=== PATIENT | female | born 1950 | race Caucasian/White ===

== ENCOUNTER 2017-01-24 11:14 | Inpatient (IN) ==
[2017-01-24] MEDS ORDERED: Aspirin 81 MG TAB.CHEW PO ONE (11:51)
[2017-01-24 12:02] LABS: Basophils # 0.1 K/mcL (0.0-0.2); Basophils % 0.5 %; Eosinophils # 0.2 K/mcL (0.0-0.6); Eosinophils % 1.6 %; Hematocrit 47.5 % (35.3-44.9); Hemoglobin 15.8 g/dL (11.5-15.4); Immature Granulocytes % 0.3 % (0-4); Lymphocytes # 2.6 K/mcL (0.6-4.6); Lymphocytes % 25.8 %; Mean Corpuscular HGB Conc 33.3 g/dL (31.6-35.5); Mean Corpuscular Hemoglobin 31.7 pg (28.0-33.3); Mean Corpuscular Volume 95.2 fL (83.0-100.0); Mean Platelet Volume 10.9 fL (9.4-12.4); Monocytes # 0.5 K/mcL (0.0-1.3); Monocytes % 5.4 %; Neutrophils # 6.7 K/mcL (1.6-8.9); Platelet Count 193 K/mcL (140-400); Red Blood Count 4.99 M/mcL (3.82-4.97); Segmented Neutrophils % 66.4 %
[2017-01-24 12:12] LABS: INR 1.1; Prothrombin Time 11.4 Seconds (9.4-12.1)
[2017-01-24] MEDS: niCARdipine 40 MG/200 ML MLS IVC SCH (12:13)
[2017-01-24 12:15] LABS: Activated Partial Thrombo Time 35.5 Seconds (26.0-36.0)
[2017-01-24 12:16] LABS: Calcium 10.7 mg/dL (8.6-10.8); Potassium 4.7 mEq/L (3.5-4.5)
[2017-01-24] MEDS ORDERED: Naloxone 0.4 MG/ML INJ IVP PRN (14:10)
[2017-01-24] MEDS ORDERED: Ondansetron 4 MG/2 ML VIAL IVP PRN (14:10)
[2017-01-24] MEDS ORDERED: Nitroglycerin 1 INCH/GM PACKET TP SCH (14:30)
--- NOTE | 2017-01-24 14:33 | Emergency Department Note ---
Disposition Clinical Impression: Hypertensive emergency Disposition: Admitted As Inpatient Condition: Good General Adult HPI - General Chief complaint: ED General Medical Stated complaint: Hypertension Time Seen by Provider: 01/24/17 11:33 Source: patient, family Limitations: no limitations Nursing Notes Reviewed: Yes Vital Signs Reviewed: Yes - History of Present Illness HPI Narrative: 58-year-old female who presents with concern for hypertensive emergency. She was seen at the outpatient pulmonary clinic and found to be hypertensive. She has a history of chronic kidney disease. There is concerned today that her blood pressure would contribute to worsening of her kidney disease. She denies chest pain or dyspnea. She has no swelling. Pain Scale: 0 - Related Data Home Medications Medication Instructions Recorded Confirmed Albuterol Sulfate [Proair Hfa] 2 puff IH Q4H PRN 01/24/17 01/24/17 Fluticasone/Salmeterol [Advair 1 puff IH BID 01/24/17 01/24/17 100-50 Diskus] Lisinopril [Zestril] 40 mg PO DAILY 01/24/17 01/24/17 Metoprolol [Lopressor] 50 mg PO BID 01/24/17 01/24/17 Mv-Mn/FA/Vit K/Lycop/Lut/Coq10 1 tab PO DAILY 01/24/17 01/24/17 [Daily Multivitamin Capsule] Vitamin E 1,000 unit PO DAILY 01/24/17 01/24/17 Allergies Allergy/AdvReac Type Severity Reaction Status Date / Time codeine Allergy Hives Verified 01/24/17 13:59 Sulfa (Sulfonamide Allergy Hives Verified 01/24/17 13:59 Antibiotics) All systems ED: reviewed and negative except as stated. Past Medical History - Past Medical History Medical history: Reports: hyperlipidemia, renal disease Psychiatric history: Reports: no psych history - Social History Smoking Status: Current every day smoker Smokeless Tobacco Status: No Alcohol use: Reports: none Drug use: Reports: none Physical Exam - General Limitations: no limitations General appearance: alert, in no apparent distress - Head Head exam: atraumatic - Eye Eye exam: Present: normal appearance - ENT ENT exam: normal exam, normal oropharynx - Neck Neck exam: Present: normal inspection, full ROM - Chest Chest inspection: Present: normal inspection - Respiratory Respiratory exam: Present: normal lung sounds bilaterally - Cardiovascular Cardiovascular exam: Present: regular rate, normal rhythm - Abdominal Exam Abdominal exam: Present: soft, Non-Tender - Extremities Exam Extremities exam: Present: normal inspection, full ROM - Expanded Lower Extremity Exam Hip/Pelvis exam: Present: normal inspection, full ROM Knee exam: Present: normal inspection, full ROM Neurovascular/Tendon exam: Present: normal capillary refill. Absent: pulse deficit Gait: observed and normal - Back Exam Back exam: Present: normal inspection, full ROM - Neurological Exam Neurological exam: Present: alert, oriented X3, CN II-XII intact - Psychiatric Psychiatric exam: Present: normal affect, normal mood - Skin Skin exam: Present: warm, dry Course Vital Signs Temperature 98.1 F 01/24/17 11:25 Pulse Rate 42 01/24/17 11:25 Respiratory Rate 16 01/24/17 11:25 Blood Pressure 217/93 01/24/17 11:25 O2 Sat by Pulse Oximetry 100 01/24/17 11:25 Temperature 98.1 F 01/24/17 11:25 Pulse Rate 63 01/24/17 12:54 Respiratory Rate 18 01/24/17 14:13 Blood Pressure 163/98 01/24/17 14:13 O2 Sat by Pulse Oximetry 99 01/24/17 12:54 Oxygen Delivery Oxygen Delivery Room Air Medical Decision Making - MDM Narrative Medical decision making narrative: Female patient with hypertensive emergency. Blood pressures are to 30s over 130s. Cardene was initiated as she does have evidence of end organ dysfunction with acute kidney injury. Her blood pressure did come down with Cardene. I would limit reducing her blood pressure by more than 20% of the mean arterial pressure in the first few hours after surgery and fusion. She will be admitted for further monitoring and blood pressure management. - Medical Records Medical records reviewed: Yes I reviewed the patient's medical records. - Lab Data Lab results reviewed: Yes I reviewed the patient's lab results. Result diagrams: 01/24/17 11:45 01/24/17 11:45 Lab Results 01/24/17 01/24/17 01/24/17 Range/Units 11:45 11:45 11:45 WBC 10.0 (4.3-11.1) K/mcL RBC 4.99 H (3.82-4.97) M/mcL Hgb 15.8 H (11.5-15.4) g/dL Hct 47.5 H (35.3-44.9) % MCV 95.2 (83.0-100.0) fL MCH 31.7 (28.0-33.3) pg MCHC 33.3 (31.6-35.5) g/dL RDW 13.0 (11.5-14.5) % Plt Count 193 (140-400) K/mcL MPV 10.9 (9.4-12.4) fL Immature Gran % 0.3 (0-4) % Seg Neutrophils % 66.4 % Lymphocytes % 25.8 % Monocytes % 5.4 % Eosinophils % 1.6 % Basophils % 0.5 % Neutrophils # 6.7 (1.6-8.9) K/mcL Lymphocytes # 2.6 (0.6-4.6) K/mcL Monocytes # 0.5 (0.0-1.3) K/mcL Eosinophils # 0.2 (0.0-0.6) K/mcL Basophils # 0.1 (0.0-0.2) K/mcL PT 11.4 (9.4-12.1) Seconds INR 1.1 APTT 35.5 (26.0-36.0) Seconds Sodium 140 (136-145) mEq/L Potassium 4.7 H (3.5-4.5) mEq/L Chloride 107 (98-109) mEq/L Carbon Dioxide 26 (19-29) mEq/L BUN 18 (7-20) mg/dL Creatinine 1.45 H (0.57-1.11) mg/dL Est GFR ( Amer) 44 L (> 60) Est GFR (Non-Af Amer) 36 L (> 60) BUN/Creatinine Ratio 12 (6-26) Glucose 94 (70-99) mg/dL Calculated Osmolality 292 (280-300) Calcium 10.7 (8.6-10.8) mg/dL Troponin I (0-0.03) ng/mL 01/24/17 Range/Units 11:45 WBC (4.3-11.1) K/mcL RBC (3.82-4.97) M/mcL Hgb (11.5-15.4) g/dL Hct (35.3-44.9) % MCV (83.0-100.0) fL MCH (28.0-33.3) pg MCHC (31.6-35.5) g/dL RDW (11.5-14.5) % Plt Count (140-400) K/mcL MPV (9.4-12.4) fL Immature Gran % (0-4) % Seg Neutrophils % % Lymphocytes % % Monocytes % % Eosinophils % % Basophils % % Neutrophils # (1.6-8.9) K/mcL Lymphocytes # (0.6-4.6) K/mcL Monocytes # (0.0-1.3) K/mcL Eosinophils # (0.0-0.6) K/mcL Basophils # (0.0-0.2) K/mcL PT (9.4-12.1) Seconds INR APTT (26.0-36.0) Seconds Sodium (136-145) mEq/L Potassium (3.5-4.5) mEq/L Chloride (98-109) mEq/L Carbon Dioxide (19-29) mEq/L BUN (7-20) mg/dL Creatinine (0.57-1.11) mg/dL Est GFR ( Amer) (> 60) Est GFR (Non-Af Amer) (> 60) BUN/Creatinine Ratio (6-26) Glucose (70-99) mg/dL Calculated Osmolality (280-300) Calcium (8.6-10.8) mg/dL Troponin I 0.01 (0-0.03) ng/mL - Radiology Data Radiology results reviewed: Yes I reviewed the patient's radiology results. Critical Care Time Total Critical Care Time: 31 Attestation: Greater than 31 minutes of critical care time was spent resuscitating this acutely ill patient suffering from hypertensive emergency requiring intervention with Cardene infusion. This was excluding billable procedures.
--- NOTE | 2017-01-24 14:51 | Internal Med History&Physical ---
<Matthew Escamilla - Last Filed: 01/24/17 18:51> Date of Encounter: 01/24/17 Time of Encounter: 13:30 Assessment and Plan (1) Hypertensive emergency Current visit: Yes Status: Acute Assess: Patient presents with hypertensive emergency upon admission to ED today with BP of 208/104. Patient reports that her BP at home becomes elevated and then returns to normal several times a day. Patient also reports that she drinks up to 48 cups of caffeinated coffee as well as Pepsi daily. Patient smoked 3 PPD up until recently and now reports she smokes 3-4 cigarettes daily. Plan: Patient placed on Nicardipine drip and will continue Continue Lopressor Continue lisinopril Add Lipitor daily 2o mg HS Patient counseled on caffeine and tobacco abuse and cessation Monitor patient and VS Bed rest with bathroom privileges (2) Chest pain Current visit: Yes Status: Acute Assess: Patient presents with complaint of chest pain she describes as a dull pressure that sometimes radiates to her back and neck and is relieved with rest. Patient' s EKG today show S-T elevations. Initial troponin 0.01. Patient denies any previous cardiac issues or history. Plan: Cardiology consult ordered Patient placed on continuous cardiac telemetry Stat echocardiogram ordered Nitro paste Q6 PRN ordered Daily aspirin 81 mg ordered NPO status until cleared by cardiology Qualifiers: Chest pain type: other chest pain Qualified Code(s): R07.89 - Other chest pain; R07.8 - Other chest pain (3) Bradycardia Current visit: Yes Status: Acute Assess: Patient presents with acute bradycardia with HR ranging between 58 and 70 bpm. Patient reports that she has a low heart rate that is normal for her. Patient currently takes Metoprolol. Plan: Monitor patient and vital signs Hold Metoprolol for HR <60 per cardiology (4) GI bleeding Current visit: Yes Status: Acute Assess: Patient presents with report of acute GI bleeding from the rectum every two to three days. Patient describes blood as bright and substantial in amount. Patient also reports her last colonoscopy was last year. Patient's current Hgb is 15.8 and Hct is 47.5. Plan: GI consult ordered No heparin for DVT prophylaxis due to bleeding. Will use bilateral SCDs on LEs Fecal hemoccult ordered IVP Protonix 40 mg BID ordered Will monitor H/H Qualifiers: GI bleed type/associated pathology: unspecified gastrointestinal hemorrhage type Qualified Code(s): K92.2 - Gastrointestinal hemorrhage, unspecified (5) Headache Current visit: Yes Status: Acute Assess: Patient presents with report of acute on chronic headache. She states that she has daily headaches, most likely related to her uncontrolled HTN due to caffeine and tobacco abuse. Plan: Stair-step pain medications ordered with careful consideration due to patient's history of pain medication addiction and overdose Monitor patient for pain and adjust medications if/when necessary Qualifiers: Headache type: unspecified Headache chronicity pattern: chronic headache Intractability: not intractable Qualified Code(s): R51 - Headache (6) Tobacco abuse counseling Current visit: Yes Status: Acute Assess: Patient and patient's family report that she was smoking 3 PPD up until recently and now smokes 3-4 cigarettes daily due to family monitoring. Plan: Patient and family counseled >10 minutes regarding the importance and benefits of smoking cessation as well as cessation techniques available. 14 mg nicotine patch ordered daily (7) HTN (hypertension) Current visit: Yes Status: Chronic Assess: Patient presents with history of chronic hypertension most likely exacerbated by her tobacco and caffeine abuse. Plan: Continue lisinopril Continue Lopressor Monitor patient and VS Qualifiers: Hypertension type: essential hypertension Qualified Code(s): I10 - Essential (primary) hypertension (8) HLD (hyperlipidemia) Current visit: Yes Status: Chronic Assess: Patient presents with history of chronic hyperlipidemia. Plan: Lipid panel ordered Lipitor 20 mg PO HS added to patient's medications Qualifiers: Hyperlipidemia type: pure hypercholesterolemia Qualified Code(s): E78.00 - Pure hypercholesterolemia, unspecified; E78.0 - Pure hypercholesterolemia (9) CKD (chronic kidney disease) stage 3, GFR 30-59 ml/min Current visit: Yes Status: Chronic Assess: Patient presents with history of chronic CKD and is currently in stage 3 with GFR of 36. Discussed the effect of caffeine abuse on renal function with patient. She is currently followed by Dr. Zhu for renal. 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 Patient's family states that she has been drinking this much for some time. Plan: Patient counseled on the effects of caffeine on her HTN and health and reducing the amount of coffee and Pepsi daily and making these de-caffeinated, as well increasing her intake of water Nutrition consult ordered (11) COPD (chronic obstructive pulmonary disease) Current visit: Yes Status: Chronic Assess: Patient presents with history of chronic COPD related to chronic tobacco abuse. 1-View CXR today shows no acute cardiopulmonary process. Plan: Supplemental O2 Continuous SpO2 monitoring DuoNebs Q4 scehduled Elevate HOB Qualifiers: COPD type: unspecified COPD Qualified Code(s): J44.9 - Chronic obstructive pulmonary disease, unspecified (12) DVT prophylaxis Current visit: Yes Status: Acute Assess: Patient to be placed on DVT prophylaxis due to current admission protocol and bed rest status. Plan: Bilateral SCDs on LEs due to current GI bleeding Internal Medicine - H&P: HPI Chief complaint: HTN/Chest Pain/GI Bleeding Admitted From: Emergency Dept Plans for Post Hospital Care: Home History of present illness: Mrs. Dhillon is a 66 year old female who presents from the ED with chief complaint of elevated BP today. She states that she has elevated BP during most days as well as recurrent headaches. She reports that she drinks up to 48 cups of caffeinated coffee daily as well as Pepsi. During examination, patient states that she is also having chest pain that she describes as dull pressure that sometimes radiates to her back and neck and is relieved with rest. She reports that she has daily headaches. Patient's EKG today shows S-T elevations and her initial troponin level was 0.01. Patient has a medical history of COPD, nodules in lungs, HTN, HLD, CKD, and possible CVA (unconfirmed). Mrs. Dhillon currently smokes 3-4 cigarettes daily but her family reports that she was smoking 3 PPD up until recently. Patient also reports that she has been having bright red blood from the rectum every two to three days in what her daughters describe as "substantial amounts". Patient's family reports she had a colonoscopy approximately 1 year ago. Patient also reports she has chronic back pain related to previous back injury/surgery and was addicted to pain medications. She attempted an overdose on Fentanyl patches in 2012 because "she didn't want to live anymore". Patient's daughters state that her at the time was an addict and they are no longer together. Patient now lives with family who monitor her and have done away with all pain medications. Mrs. Dhillon has no previous cardiac history for DC or stents and is at high risk for cardiac event based on current symptoms; risk factors of HTN, HLD, and tobacco abuse; as well as caffeine abuse. Patient is to be admitted as inpatient with consults to cardiology, GI, nutrition, and SW placed. Patient will be placed on continuous cardiac telemetry with order for stat echocardiogram, supplemental O2 and SpO2 monitoring, NPO status until seen/cleared by cardiology, judicious use of IV fluids due to patient's CKD and current GFR of 36, nitro paste PRN Q6 , bilateral SCDs on LEs due to current bleeding, DuoNebs Q4 scheduled, and careful use of stair-stepped pain medications due to patient's previous addiction. Patient to be monitored closely for signs of increased bleeding, cardiac, and/or respiratory distress. Time spent with patient and family >50 minutes. Past Med Surg Social Fam HX - Past Medical History Source: patient Medical history: COPD, CVA, hyperlipidemia, hypertension, renal disease Psychiatric history: no psych history - Past Surgical History Surgical History: breast surgery (Right lumpectomy), cholecystectomy, orthopedic , other (Back surgery, Right wrist), other (Tonsillectomy, Tubal ligation) - Social History Smoking Status: Current every day smoker Packs per day: 3 PPD previously, now 3-4 cigarettes daily Smokeless Tobacco Status: No Alcohol use: none Drug use: none Current living situation: Home, With Family Activity Level: Independent ambulation Recent Out of Country Travel Within the Last 8 Weeks: No Exposure or Possible Exposure to Illness During Travel: No - Family History Father Race: Family Member Ethnicity: Non- Living Status: Age at : 55 Cause of : Brain cancer Hx Family Cancer: Yes (Brain) Mother Race: Family Member Ethnicity: Non- Living Status: Age at : 53 Cause of : Cardiomegaly complications Hx Family Cardiac Disorders: Yes (Cardiomegaly, HTN) Internal Medicine - H&P: Meds Albuterol Sulfate [Proair Hfa] 2 puff IH Q4H PRN 01/24/17 [History] Fluticasone/Salmeterol [Advair 100-50 Diskus] 1 puff IH BID 01/24/17 [History] Lisinopril [Zestril] 40 mg PO DAILY 01/24/17 [History] Metoprolol [Lopressor] 50 mg PO BID 01/24/17 [History] Mv-Mn/FA/Vit K/Lycop/Lut/Coq10 [Daily Multivitamin Capsule] 1 tab PO DAILY 01/24 [History] Vitamin E 1,000 unit PO DAILY 01/24/17 [History] 3 Allergy/AdvReac Type Severity Reaction Status Date / Time codeine Allergy Hives Verified 01/24/17 13:59 Sulfa (Sulfonamide Allergy Hives Verified 01/24/17 13:59 Antibiotics) All Systems PM: A 10-system review of systems was performed and is negative for pertinent findings except as documented above in the HPI. - Constitutional Constitutional: as per HPI, no chills, no fever(s), no night sweats - EENT Eyes: no change in vision, no discharge, no pain, no photophobia Ears: no ear discharge, no ear pain, no tinnitus Nose, mouth and throat: no dysphagia, no nasal discharge, no neck pain, no sore throat - Breasts Breasts: as per HPI - Cardiovascular Cardiovascular ROS IM: as per HPI, chest pain, dyspnea, lightheadedness, no diaphoresis, no palpitations, no syncope - Respiratory Respiratory: as per HPI, dyspnea, pain on inspiration, pain with cough, no cough , no wheezing, no excessive phlegm production - Gastrointestinal Gastrointestinal: as per HPI, change in bowel habits, heartburn, hematochezia, nausea - Genitourinary Genitourinary: no change in urinary stream, no dysuria, no flank pain, no hematuria Menstruation: as per HPI - Musculoskeletal Musculoskeletal ROS IM: as per HPI, back pain, no numbness, no tingling - Integumentary Integumentary IM: no rash, no unusual bruising - Neurological Neurological ROS: no confusion, no convulsions, no focal weakness, no numbness, no tingling, no tremor(s) - Psychiatric Psychiatric: as per HPI - Endocrine Endocrine IM: as per HPI - Hematologic/Lymphatic Hematologic/Lymphatic: as per HPI, easy bleeding - Allergic/Immunologic Allergic/Immunologic: as per HPI - Constitutional Vitals: Temp Pulse Resp BP Pulse Ox 98.1 F 63 18 163/98 99 01/24/17 11:25 01/24/17 12:54 01/24/17 14:13 01/24/17 14:13 01/24/17 12:54 General appearance: Present: cooperative, mild distress, A&O X 3, pleasant, answers questions appropriately - Head Head exam: Present: atraumatic, normocephalic - Eye Eye exam: Present: PERRL, conjuntiva pink, sclera anicteric Pupils: Present: PERRL - ENT ENT exam: Present: normal exam, normal external ear exam - Neck Neck exam general surgery: Present: normal inspection, supple, trachea midline. Absent: lymphadenopathy - Respiratory Respiratory exam: Present: CTAB. Absent: accessory muscle use, rales, rhonchi, wheezes - Cardiovascular Cardiovascular exam: Present: bradycardia - GI/Abdominal GI/Abdominal exam: Present: normal bowel sounds, soft, no peritoneal signs. Absent: distended, tenderness - Rectal Rectal exam: Present: deferred - Additional comments: exam deferred. - Extremities Exam Extremities exam: Present: warm, radial pulses palpable and symmetrical. Absent : calf tenderness, cyanotic, pedal edema - Back Exam Back exam: Present: normal inspection - Neurological Exam Neurological exam: Present: CN II-XII intact, oriented X3, no focal deficits. Absent: pronater drift, facial droop, speech deficit - Psychiatric Psychiatric exam: Present: normal affect, normal mood - Skin Skin exam: Present: dry, intact Internal Med - H&P Results - Labs CBC & Chem 7: 01/24/17 11:45 01/24/17 11:45 - EKG Data EKG shows normal: sinus rhythm Rate: bradycardia - EKG Data Prior EKG available for review: no EKG comments: 01/24/17 15:02 EKG dated 01/24/17 shows sinus bradycardia with sinus arrhythmia. - Diagnostic Studies Chest x-ray Additional comments: Impressions Chest X-Ray 01/24/17 11:52 IMPRESSION: 1. No acute cardiopulmonary disease. D/ / Diomedes Taylor MD / Diomedes Taylor MD Interpreting Provider: Diomedes Taylor MD <Chadwick Miramontes - Last Filed: 01/24/17 19:08> Date of Encounter: 01/24/17 Internal Medicine - H&P: HPI History of present illness: Ms. Dhillon is a 66 year old female All Systems PM: A 10-system review of systems was performed and is negative for pertinent findings except as documented above in the HPI. - Constitutional Vitals: Temp Pulse Resp BP Pulse Ox 98.0 F 58 16 147/79 97 01/24/17 14:35 01/24/17 18:19 01/24/17 18:19 01/24/17 18:19 01/24/17 18:19 Internal Med - H&P Results - Labs CBC & Chem 7: 01/24/17 11:45 01/24/17 11:45 Labs: Cardiac Enzymes 01/24/17 Range/Units 17:21 Troponin I 0.01 (0-0.03) ng/mL - Attending Attestation I have personally seen the patient and examined the patient and discuss with advanced nurse practitioner and agree with the plan. Patient has come in with the uncontrolled hypertension and headache. She was started on nicardipine drip in the ER which help in bringing the blood pressure down. Cardiology was consulted who wants blood pressure in the range of 1 5160. I have reduce Lopressor to 25 mg twice a day as patient had some bradycardia and also split lisinopril to 20 mg twice a day while nurses that taking patient off nicardipine. Patient oral medication needs to be adjusted. Patient has chronic kidney disease and her creatinine is around 1.45 but I suspect some portion of it could be due to continued outpatient diuresis due to her leg edema
[2017-01-24] MEDS: 0.9 % Sodium Chloride 1,000 ML IVC SCH (15:10)
--- NOTE | 2017-01-24 16:04 | Cardiology Consult Note ---
Date of Encounter: 01/24/17 Time of Encounter: 15:30 Assessment and Plan (1) HTN (hypertension) Current Visit: Yes Status: Chronic Per cardiology: -KNown hypertension. -BPs 220 systolic on admission. -Currently on cardene drip, metoprolol, nitro paste, and lisinopril. -Recommend BP 150-160s, do not bring down to quickly. -Will stop nitro paste in preparation for possible stress in am. -will continue to monitor. Qualifiers: Hypertension type: essential hypertension Qualified Code(s): I10 - Essential (primary) hypertension (2) Chest pain Current Visit: Yes Status: Acute Per cardiology: -Admits to chest pain when BP elevated. -ALso admits to new worsenign fatigue and worsening shortness of breath. -ECG with no ischemic changes. -Denies current chest pain. -Troponin negative. -Echo pending. -Continue to trend troponin. -Can consider stress test in am. Qualifiers: Chest pain type: other chest pain Qualified Code(s): R07.89 - Other chest pain; R07.8 - Other chest pain (3) Bradycardia Current Visit: Yes Status: Acute Per cardiology: -ECG with HR 42. -Telemetry with HR 50-60s. -Reports HR at home 50-60s always. States takes metorpolol at home. -Will continue to monitor. -Recommend holding beta cielo for HR less than 60. (4) Tobacco abuse Current Visit: Yes Status: Chronic Per cardiology: -KNown tobacco abuse. -States smokes 0.5ppd for 50 years. -I spent 5 minutes reviewing smoking cessation education with patient. Discussion w patient/family: The assessment and plan as outlined above was discussed with the patient who expressed understanding and agreement. All questions were answered. Thank you for involving us in the care of your patient. Please call with any questions. Discussed and reviewed with . History of Present Illness Consult date: 01/24/17 Requesting physician: Matthew Escamilla Consult reason: chest pain, ECG changes Chief complaint: hypertension History of present illness: Ms. Dhillon is a 66 year old female with a relevant past medical history of HTN, hyperlipidemia, CKD, tobacco abuse. Patient presents to [facility] after being seen in pulmonary clinic and noted to be hypertensive. On admission BP 220s systolic. Patient states at home she has had chest pain when her BP is elevated. Patient also reports increased shortness of breath and increased fatigue over the past 4 days. Patient denies current chest pain. Past Med Surg Social Fam HX - Past Medical History Attestation: Yes The following information was validated with the patient. Source: patient, old records reviewed Medical history: COPD, CVA, hyperlipidemia, hypertension, renal disease Psychiatric history: no psych history - Past Surgical History Surgical History: breast surgery (Right lumpectomy), cholecystectomy, orthopedic , other (Back surgery, Right wrist), other (Tonsillectomy, Tubal ligation) - Social History Smoking Status: Current every day smoker Packs per day: 3 PPD previously, now 3-4 cigarettes daily Smokeless Tobacco Status: No Alcohol use: none Drug use: none - Family History Mother Race: Family Member Ethnicity: Non- Living Status: Age at : 53 Cause of : Cardiomegaly complications Hx Family Cardiac Disorders: Yes (Cardiomegaly, HTN) Hx Family Endocrine Disorder: Yes (DM) Father Race: Family Member Ethnicity: Non- Living Status: Age at : 55 Cause of : Brain cancer Hx Family Respiratory Disorders: Yes Hx Family Cancer: Yes (Brain) Medications and Allergies Albuterol Sulfate [Proair Hfa] 2 puff IH Q4H PRN 01/24/17 [History] Fluticasone/Salmeterol [Advair 100-50 Diskus] 1 puff IH BID 01/24/17 [History] Lisinopril [Zestril] 40 mg PO DAILY 01/24/17 [History] Metoprolol [Lopressor] 50 mg PO BID 01/24/17 [History] Mv-Mn/FA/Vit K/Lycop/Lut/Coq10 [Daily Multivitamin Capsule] 1 tab PO DAILY 01/24 [History] Vitamin E 1,000 unit PO DAILY 01/24/17 [History] 3 Allergy/AdvReac Type Severity Reaction Status Date / Time codeine Allergy Hives Verified 01/24/17 13:59 Sulfa (Sulfonamide Allergy Hives Verified 01/24/17 13:59 Antibiotics) All Systems Review: A 10-system review of systems was performed and is negative for pertinent findings except as documented above in the HPI. - Constitutional Constitutional: fatigue - Cardiovascular Cardiovascular: as per HPI, chest pain at rest, dyspnea on exertion Physical Examination Vital Signs, Last 4 Hours Temp Pulse Resp BP Pulse Ox 01/24/17 15:00 53 16 152/96 98 01/24/17 14:50 49 16 162/82 99 01/24/17 14:35 98.0 F 56 16 162/83 98 01/24/17 14:31 55 01/24/17 14:27 68 16 143/99 99 01/24/17 14:13 18 163/98 General: Conversant, No Apparent Distress HEENT: Atraumatic, Normocephaly, Mucus Membranes Moist Neck: No JVD, Normal carotid pulses Cardiac: Reg Rate and Rhythm, Normal S1 and S2, No Murmur Lungs: Normal Breath Sounds, No Wheeze, Rales, Rhonchi Neuro: Alert and responsive, No focal deficits noted Abdomen: Soft, Non-Tender Skin: No rashes noted on visualized skin Musculoskeletal: No Chest Wall Tenderness Extremities: No Clubbing, No Cyanosis, No Edema, Normal Pulses Results 01/24/17 11:45 01/24/17 11:45 Impressions Chest X-Ray 01/24/17 11:52 IMPRESSION: 1. No acute cardiopulmonary disease. D/ / Diomedes Taylor MD / Diomedes Taylor MD Interpreting Provider: Diomedes Taylor MD Active Medications Acetaminophen (Tylenol) 650 mg PO Q6HR PRN PRN Reason: Mild Pain (1-3) Stop: 07/26/17 14:11 Albuterol/Ipratropium (Duoneb) 3 ml IH [id number] [facility] Stop: 07/26/17 16:01 Aspirin (Aspirin Ec) 81 mg PO DAILY [facility] Stop: 07/27/17 09:01 Atorvastatin Calcium (Lipitor) 20 mg PO HS [facility] Stop: 07/26/17 21:01 Hydromorphone HCl (Dilaudid) 0.5 mg IVP Q4HR PRN PRN Reason: Severe Pain (7-10) Stop: 07/26/17 14:30 Nicardipine HCl (Cardene Premix 40mg/200ml) 40 mg in 200 mls @ 25 mls/hr IVC .Q8H ELENA; 5 MG/HR PRN Reason: Protocol Stop: 07/26/17 12:01 Last Titration: 01/24/17 15:18 Dose: 5 mg/hr, 25 mls/hr Sodium Chloride (0.9 % Sodium Chloride) 1,000 mls @ 60 mls/hr IVC .[id number] [facility] Stop: 07/26/17 14:31 Last Admin: 01/24/17 15:10 Dose: 60 mls/hr Lisinopril (Zestril) 40 mg PO DAILY E[facility] Stop: 07/27/17 09:01 Metoprolol Tartrate (Lopressor) 50 mg PO BID [facility] Stop: 07/26/17 21:01 Multivitamins/Calcium (Thera M Plus) 1 tab PO DAILY [facility] Stop: 07/27/17 09:01 Naloxone HCl (Narcan) 0.4 mg IVP Q2MIN PRN PRN Reason: Opioid Reversal Stop: 07/26/17 14:11 Nicotine (Nicoderm) 14 mg TD DAILY ELENA PRN Reason: Protocol Stop: 07/27/17 09:01 Ondansetron HCl (Zofran) 4 mg IVP Q8HR PRN PRN Reason: Nausea And Vomiting Stop: 07/26/17 14:11 Pantoprazole Sodium (Protonix) 40 mg IVP BID [facility] Stop: 07/26/17 21:01 Tramadol HCl (Ultram) 50 mg PO Q6HR PRN PRN Reason: Moderate Pain Stop: 07/26/17 14:33 Vitamin E (Vitamin E) 1,000 unit PO DAILY [facility] Stop: 07/27/17 09:01 Laboratory Tests 05/26/16 12/05/16 01/24/17 13:06 14:46 11:45 Hgb 15.8 H Creatinine 1.38 H 1.34 H Troponin I 01/24/17 01/24/17 11:45 11:45 Hgb Creatinine 1.45 H Troponin I 0.01 - Imaging and Cardiology Chest Xray: report reviewed Echo: pending - EKG Interpretation EKG results cardiology: personally reviewed (ECG reviewed with sinus bradycardia , HR 42. Unknown baseline ECG.), other (Telemetry reviewed with HR 50-60s.) Consult Discharge Plan - Plan Referrals: Barbara Galeano, REVENUE MANAGER [Primary Care Provider] -
[2017-01-24] MEDS: Ipratropium/Albuterol Neb 3 ML IH SCH ×2 (16:26→20:45)
[2017-01-24] MEDS: *HR* HYDROcodone/Acet 5/325 mg TABLET PO PRN (17:35)
[2017-01-24] MEDS: Lisinopril 20 MG TABLET PO SCH ×2 (17:36→20:58)
--- NOTE | 2017-01-24 20:54 | Electrocardiograph Report ---
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
--- NOTE | 2017-01-24 20:54 | Electrocardiograph Report ---
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
[2017-01-24] MEDS: *HR* HYDROmorphone (PF) 1 MG/ML SYRINGE IVP PRN (20:57)
[2017-01-24] MEDS: Pantoprazole 40 MG VIAL IVP SCH (20:58)
[2017-01-25] MEDS: Ipratropium/Albuterol Neb 3 ML IH SCH ×7 (00:10→23:19)
[2017-01-25] MEDS: *HR* HYDROcodone/Acet 5/325 mg TABLET PO PRN ×2 (01:18→12:10)
[2017-01-25] MEDS: traMADol 50 MG TABLET PO PRN ×2 (01:18→14:53)
[2017-01-25 01:34] LABS: INR 1.2; Prothrombin Time 13.1 Seconds (9.4-12.1)
[2017-01-25 01:45] LABS: Calcium 9.1 mg/dL (8.6-10.8); Chol/HDL Ratio 3.5 (0-4.9); Magnesium 1.7 mg/dL (1.6-2.6); Potassium 4.1 mEq/L (3.5-4.5)
[2017-01-25 01:53] LABS: Basophils % 0.4 %; Eosinophils # 0.2 K/mcL (0.0-0.6); Hematocrit 40.8 % (35.3-44.9); Hemoglobin 13.1 g/dL (11.5-15.4); Immature Granulocytes % 0.1 % (0-4); Immature Platelets 5.4 % (1.1-6.1); Lymphocytes # 3.5 K/mcL (0.6-4.6); Lymphocytes % 44.3 %; Mean Corpuscular HGB Conc 32.1 g/dL (31.6-35.5); Mean Corpuscular Hemoglobin 30.9 pg (28.0-33.3); Mean Corpuscular Volume 96.2 fL (83.0-100.0); Mean Platelet Volume 11.8 fL (9.4-12.4); Monocytes # 0.5 K/mcL (0.0-1.3); Monocytes % 6.3 %; Neutrophils # 3.7 K/mcL (1.6-8.9); Red Blood Count 4.24 M/mcL (3.82-4.97); Red Cell Distribution Width 13.1 % (11.5-14.5); Segmented Neutrophils % 46.9 %
[2017-01-25 01:56] LABS: Large Platelets Present (Not Present); Platelet Clumps Few (Not Present); Platelet Count 160 K/mcL (140-400); Platelet Estimate Normal (Normal)
[2017-01-25 01:57] LABS: Macrocytosis Present (Not Present)
[2017-01-25] MEDS: niCARdipine 40 MG/200 ML MLS IVC SCH ×2 (07:47→12:00)
[2017-01-25] MEDS: 0.9 % Sodium Chloride 1,000 ML IVC SCH (07:54)
[2017-01-25] MEDS: Lisinopril 20 MG TABLET PO SCH ×2 (08:11→21:29)
[2017-01-25] MEDS: Aspirin Enteric Coated 81 MG Tablet PO SCH (08:11)
[2017-01-25] MEDS: Acetaminophen 325 MG TABLET PO PRN (08:12)
[2017-01-25 08:30] LABS: Bilirubin,Urine Negative (Negative); Blood,Urine Negative (Negative); Clarity,Urine Clear (Clear); Color,Urine Yellow (Yellow); Glucose,Urine (UA) Normal (Normal); Ketones,Urine Negative (Negative); Leukocyte Esterase,Urine Small (Negative); Nitrite,Urine Negative (Negative); PH,Urine 5.5 pH Units (5.0-8.0); Protein,Urine Negative (Neg-Trace); Specific Gravity,Urine 1.021 (1.010-1.025); Urobilinogen,Urine Normal (Normal)
[2017-01-25 08:31] LABS: Bacteria,Urine None Seen per hpf (None-Few); Hyaline Casts,Urine None Seen per lpf (None-Few); RBC,Urine 0-3 per hpf (0-3); Squamous Epithelial Cell,Urine Many per lpf (None-Few)
[2017-01-25] MEDS ORDERED: Nicotine 14 MG PATCH.TD24 TD SCH (09:00)
[2017-01-25] MEDS ORDERED: Lisinopril 20 MG TABLET PO SCH (09:00)
--- NOTE | 2017-01-25 09:15 | Gastroenterology Consult Note ---
<Radha Sweet - Last Filed: 01/26/17 11:03> Date of Encounter: 01/26/17 Time of Encounter: 10:10 - Assessment and plan (1) GI bleeding Current Visit: Yes Status: Acute Assessment and plan: Hgb stable, continue to monitor. Sigmoidoscopy with Dr. Qiu to address BRBPR with possible hemorrhoidal bleeding. Qualifiers: GI bleed type/associated pathology: unspecified gastrointestinal hemorrhage type Qualified Code(s): K92.2 - Gastrointestinal hemorrhage, unspecified (2) HTN (hypertension) Current Visit: Yes Status: Chronic Qualifiers: Hypertension type: essential hypertension Qualified Code(s): I10 - Essential (primary) hypertension - Time Spent With Patient Total time spent is greater than 50% in coordination of care (as documented) at patient's floor/unit and/or counseling patient: less than 15 minutes GI History of Present Illness - Data of Consult Patient: new to practice Consult date: 01/25/17 Requesting Physician: Cisco Waters - Consult Narrative Reason for consult: BRBPR History of present illness: Ms. Dhillon is a 66 year old female with PMH of COPD, lung nodules, HTN, HLD CKD , possible CVA who was sent to ER from pulmonology office for hypertension. Systolic in the 200s. She states that she has elevated BP during most days as well as recurrent headaches. She reports that she drinks up to 4-8 cups of caffeinated coffee daily as well as Pepsi. She also complained of CP during her intake, cardio was consulted and is planning a stress test today. Patient's EKG yesterday in ED showed S-T elevations and her initial troponin level was 0.01. Mrs. Dhillon currently smokes 3-4 cigarettes daily but her family reports that she was smoking 3 PPD up until recently. Patient also reports that she has been having bright red blood from the rectum every two to three days in what her daughters describe as "substantial amounts". Patient's family reports she had a colonoscopy approximately 1 year ago. Patient also reports she has chronic back pain related to previous back injury/surgery and was addicted to pain medications. She attempted an overdose on Fentanyl patches in 2012 because "she didn't want to live anymore". Patient's daughters state that her at the time was an addict and they are no longer together. Patient now lives with family who monitor her and have done away with all pain medications. Attempted to see patient 2x on rounds, she was not in her room at last check 11: 45 am, still in stress testing. Patient examined this am at bedside. She was very nauseous, no vomiting, at time of my exam. Her BP was elevated and she had a h/a at that time, she was a poor historian due to these problems. She admits BM every day or two, BRB noted with wiping, in commode. Colonoscopy: Yes - results unk per patient Past Med Surg Social Fam HX - Past Medical History Medical history: COPD, CVA, hyperlipidemia, hypertension, renal disease Psychiatric history: no psych history - Past Surgical History Surgical History: breast surgery (Right lumpectomy), cholecystectomy, orthopedic , other (Back surgery, Right wrist), other (Tonsillectomy, Tubal ligation) - Social History Smoking Status: Current every day smoker Packs per day: 3 PPD previously, now 3-4 cigarettes daily Smokeless Tobacco Status: No Alcohol use: none Drug use: none - Family History Mother Race: Family Member Ethnicity: Non- Living Status: Age at : 53 Cause of : Cardiomegaly complications Hx Family Cardiac Disorders: Yes (Cardiomegaly, HTN) Hx Family Endocrine Disorder: Yes (DM) Father Race: Family Member Ethnicity: Non- Living Status: Age at : 55 Cause of : Brain cancer Hx Family Respiratory Disorders: Yes Hx Family Cancer: Yes (Brain) - Gastrointestinal NSAID use: None noted Anticoagulation Use: full strength asa Number of BM Per Day: every other day Gastrointestinal: Present: abdominal pain, hematochezia, nausea, vomiting - Constitutional Constitutional: as per HPI - EENT Eyes: as per HPI Ears: Present: as per HPI Nose, mouth and throat: Present: as per HPI - Cardiovascular Cardiovascular ROS: Present: chest pain, palpitations - Respiratory Respiratory IM: Present: as per HPI - Neurological ROS Neurological GI: Present: headache(s) - Hematologic/Lymphatic Hematologic/Lymphatic pediatric: Present: as per HPI - Musculoskeletal Musculoskeletal ROS GI: Present: as per HPI - Integumentary Integumentary GI: Present: as per HPI - Psychiatric ROS Psychiatric GI: Present: as per HPI - Endocrine Endocrine IM: Present: as per HPI - Constitutional Vitals: Temp Pulse Resp BP Pulse Ox 98.4 F 58 16 139/91 96 01/25/17 07:14 01/25/17 08:19 01/25/17 07:54 01/25/17 07:14 01/25/17 08:19 General appearance: Present: cooperative, disheveled, A&O X 3, no acute distress , answers questions appropriately - Head Head exam: Present: atraumatic, normocephalic - Eye Eye exam: Present: normal appearance, sclera anicteric - ENT ENT exam: Present: mucous membranes moist - Neck Neck exam general surgery: Present: normal inspection, trachea midline - Respiratory Respiratory exam: Present: CTAB - Cardiovascular Cardiovascular exam: Present: tachycardia - GI/Abdominal GI/Abdominal exam: Present: soft, tenderness, no peritoneal signs - Rectal Rectal exam: Present: deferred - Extremities Exam Extremities exam: Present: warm - Neurological Exam Neurological exam: Present: no focal deficits - Psychiatric Psychiatric exam: Present: normal affect, normal mood - Skin Skin exam: Present: dry, intact, normal color, warm Results - Labs CBC & Chem 7: 01/26/17 04:16 01/26/17 04:16 Labs: Last Result Calcium 9.1 mg/dL (8.6-10.8) 01/25/17 00:41 Troponin I 0.01 ng/mL (0-0.03) 01/25/17 00:41 Triglycerides 111 mg/dL (< 150) 01/25/17 00:41 Entire Visit Hgb 13.1 g/dL (11.5-15.4) D 01/25/17 00:41 Hct 40.8 % (35.3-44.9) 01/25/17 00:41 PT 13.1 Seconds (9.4-12.1) H 01/25/17 00:41 - ABG ABG results: PT/INR, D-dimer PT 13.1 Seconds (9.4-12.1) H 01/25/17 00:41 Consult Discharge Plan - Plan Referrals: Archana Fernandez VENEER STACKER [Advanced Practice Nurse] - (OFFICE WILL CALL PATIENT AT HOME WITH AN APPOINTMENT) Brant Wilks VENEER STACKER [Advanced Practice Nurse] - (SENT WEB REQUEST ON 01-26-17 @ [id number]) Barbara Galeano CNP [Primary Care Provider] - 09/12/17 3:45 pm <GarfieldgibranDevon - Last Filed: 01/26/17 18:56> Date of Encounter: 01/25/17 Time of Encounter: 18:00 - Time Spent With Patient Total time spent is greater than 50% in coordination of care (as documented) at patient's floor/unit and/or counseling patient: GI History of Present Illness - Data of Consult Requesting Physician: Cisco Waters - Consult Narrative History of present illness: Ms. Dhillon is a 66 year old female - Constitutional Vitals: Temp Pulse Resp BP Pulse Ox 98.0 F 76 18 161/91 96 01/26/17 17:18 01/26/17 17:43 01/26/17 17:43 01/26/17 17:43 01/26/17 17:43 Results - Labs CBC & Chem 7: 01/26/17 04:16 01/26/17 04:16 Labs: Last Result Calcium 9.9 mg/dL (8.6-10.8) 01/26/17 04:16 Troponin I 0.01 ng/mL (0-0.03) 01/25/17 00:41 Triglycerides 111 mg/dL (< 150) 01/25/17 00:41 Entire Visit Hgb 13.4 g/dL (11.5-15.4) 01/26/17 04:16 Hct 41.0 % (35.3-44.9) 01/26/17 04:16 PT 13.1 Seconds (9.4-12.1) H 01/25/17 00:41 - ABG ABG results: PT/INR, D-dimer PT 13.1 Seconds (9.4-12.1) H 01/25/17 00:41 - Impressions Impressions Head CT 01/26/17 10:12 IMPRESSION: 1. No acute intracranial abnormality. 2. Chronic small vessel ischemic disease. D/ / Santo Pappas MD / Santo Pappas MD Interpreting Provider: Santo Pappas MD - Attending Attestation I examined this patient and my medical decision-making was reviewed with the Resident Physician. I agree with the documented findings, disposition and treatment plan as described except to the extent set forth below. History of hemorrhoid with on and off bleeding. Bleeding has currently stopped. Plan: sigmoidoscopy in the morning has a recent colonoscopy done and [facility] in the beginning of the year. If found to have large hemorrhoid then we will band them
[2017-01-25] MEDS ORDERED: Regadenoson 0.4 MG/5 ML SYRINGE IVP ONE (09:49)
--- NOTE | 2017-01-25 11:03 | Cardiology Progress Note ---
Date of Encounter: 01/25/17 Time of Encounter: 10:30 Assessment and Plan (1) HTN (hypertension) Current Visit: Yes Status: Chronic Per cardiology: -KNown hypertension. -BPs 220 systolic on admission. -Currently on metoprolol, and lisinopril. Cardene drip off since yesterday evening. -BPs currently 130-140s systolic. -will continue to monitor. Qualifiers: Hypertension type: essential hypertension Qualified Code(s): I10 - Essential (primary) hypertension (2) Chest pain Current Visit: Yes Status: Acute Per cardiology: -Admits to chest pain when BP elevated. -ALso admits to new worsenign fatigue and worsening shortness of breath. -ECG with no ischemic changes. -Denies current chest pain. -Troponin negative x3. -Echo with LVEF 60-65%, LV wall thickening noted, no significant valvular dysufnction, all good with normal motion. -Non-excercise nuclear stress pending. -Further recommendations pending stress test. Qualifiers: Chest pain type: other chest pain Qualified Code(s): R07.89 - Other chest pain; R07.8 - Other chest pain (3) Bradycardia Current Visit: Yes Status: Acute Per cardiology: -ECG with HR 42. -Telemetry with average HR 56. Minimum HR 47, nocturnal. -Reports HR at home 50-60s always. States takes metorpolol at home. -Denies dizziness or lightheadedness. -Will continue to monitor. -Recommend holding beta cielo for HR less than 60. -Can consider outpatient sleep study. (4) Tobacco abuse Current Visit: Yes Status: Chronic Per cardiology: -KNown tobacco abuse. -States smokes 0.5ppd for 50 years. -I spent 5 minutes reviewing smoking cessation education with patient. Discussion w patient/family: The assessment and plan as outlined above was discussed with the patient who expressed understanding and agreement. All questions were answered. Thank you for involving us in the care of your patient. Please call with any questions. Discussed and reviewed with . Subjective Principal diagnosis: HTN Interval history: Patient seen and examined during stress test. Patient states she was feeling better today. Objective Vital Signs, Last 4 Hours Temp Pulse Resp BP Pulse Ox 01/25/17 08:19 58 96 01/25/17 07:54 16 95 01/25/17 07:14 98.4 F 58 18 139/91 97 General: Conversant, No Apparent Distress HEENT: Atraumatic, Normocephaly, Mucus Membranes Moist Neck: No JVD, Normal carotid pulses Cardiac: Reg Rate and Rhythm, Normal S1 and S2, No Murmur Lungs: Normal Breath Sounds, No Wheeze, Rales, Rhonchi Neuro: Alert and responsive, No focal deficits noted Abdomen: Soft, Non-Tender Skin: No rashes noted on visualized skin Musculoskeletal: No Chest Wall Tenderness Extremities: No Clubbing, No Cyanosis, No Edema, Normal Pulses Results 01/25/17 00:41 01/25/17 00:41 Lab Results Impressions Chest X-Ray 01/24/17 11:52 IMPRESSION: 1. No acute cardiopulmonary disease. D/ / Diomedes Taylor MD / Diomedes Taylor MD Interpreting Provider: Diomedes Taylor MD Active Medications Acetaminophen (Tylenol) 650 mg PO Q6HR PRN PRN Reason: Mild Pain (1-3) Stop: 07/26/17 14:11 Last Admin: 01/25/17 08:12 Dose: 650 mg Hydrocodone Bitart/Acetaminophen (Hugo 5-325 Mg) 1 tab PO Q6HR PRN PRN Reason: Pain Stop: 07/26/17 17:18 Last Admin: 01/25/17 01:18 Dose: 1 tab Albuterol/Ipratropium (Duoneb) 3 ml IH [id number] [facility] Stop: 07/26/17 16:01 Last Admin: 01/25/17 07:53 Dose: 3 ml Aspirin (Aspirin Ec) 81 mg PO DAILY [facility] Stop: 07/27/17 09:01 Last Admin: 01/25/17 08:11 Dose: 81 mg Atorvastatin Calcium (Lipitor) 20 mg PO HS [facility] Stop: 07/26/17 21:01 Last Admin: 01/24/17 20:58 Dose: 20 mg Hydromorphone HCl (Dilaudid) 0.5 mg IVP Q4HR PRN PRN Reason: Severe Pain (7-10) Stop: 07/26/17 14:30 Last Admin: 01/24/17 20:57 Dose: 0.5 mg Nicardipine HCl (Cardene Premix 40mg/200ml) 40 mg in 200 mls @ 25 mls/hr IVC .Q8H ELENA; 5 MG/HR PRN Reason: Protocol Stop: 07/26/17 12:01 Last Admin: 01/25/17 07:47 Dose: Not Given Sodium Chloride (0.9 % Sodium Chloride) 1,000 mls @ 60 mls/hr IVC .[id number] [facility] Stop: 07/26/17 14:31 Last Admin: 01/25/17 07:54 Dose: 60 mls/hr Lisinopril (Zestril) 20 mg PO BID [facility] Stop: 07/26/17 17:17 Last Admin: 01/25/17 08:11 Dose: 20 mg Metoprolol Tartrate (Lopressor) 25 mg PO BID [facility] Stop: 07/26/17 21:01 Last Admin: 01/24/17 20:57 Dose: 25 mg Multivitamins/Calcium (Thera M Plus) 1 tab PO DAILY [facility] Stop: 07/27/17 09:01 Naloxone HCl (Narcan) 0.4 mg IVP Q2MIN PRN PRN Reason: Opioid Reversal Stop: 07/26/17 14:11 Ondansetron HCl (Zofran) 4 mg IVP Q8HR PRN PRN Reason: Nausea And Vomiting Stop: 07/26/17 14:11 Pantoprazole Sodium (Protonix) 40 mg IVP BID [facility] Stop: 07/26/17 21:01 Last Admin: 01/24/17 20:58 Dose: 40 mg Tramadol HCl (Ultram) 50 mg PO Q6HR PRN PRN Reason: Moderate Pain Stop: 07/26/17 14:33 Last Admin: 01/25/17 01:18 Dose: 50 mg Vitamin E (Vitamin E) 1,000 unit PO DAILY [facility] Stop: 07/27/17 09:01 Laboratory Tests 01/24/17 01/24/17 01/24/17 11:45 11:45 17:21 Hgb 15.8 H Creatinine Troponin I 0.01 0.01 Triglycerides Cholesterol LDL Cholesterol, Calc HDL Cholesterol 01/25/17 01/25/17 01/25/17 00:41 00:41 00:41 Hgb 13.1 D Creatinine 1.46 H Troponin I 0.01 Triglycerides 111 Cholesterol 147 LDL Cholesterol, Calc 83 HDL Cholesterol 42 - Imaging and Cardiology Chest Xray: report reviewed Stress Test: pending Echo: report reviewed - EKG Interpretation EKG results cardiology: other (Telemetry reviewed with average HR 56, sinus bradycardia. Minimum HR 47 at 2314. PVCs and PACs ntoed.) Consult Discharge Plan - Plan Referrals: Barbara Galeano CNP [Primary Care Provider] -
[2017-01-25] MEDS: Multivit/Ca/Min/Fe/FA 1 TAB TABLET PO SCH (12:10)
[2017-01-25] MEDS: Pantoprazole 40 MG VIAL IVP SCH (12:10)
[2017-01-25] MEDS: amLODIPine 5 MG TABLET PO SCH (12:56)
--- NOTE | 2017-01-25 13:07 | Nuclear Medicine Stress Report ---
Low Level Regadenoson Name: Ness Dhillon Date of Study: 01/25/2017 Date: 1950 Ht: 63.0 in Medical Record#: [id number] Age: 66 Wt: 130.0 lb Gender: Female Order #: [id number] Location: [facility] Room: 4 Supervising Provider: Joby Blair CNP Reading Physician: Rula Davila DO Ordering Physician: Cisco Waters MD Primary Care Physician: None Stress Technologist: Dalila Valderrama BROADCAST CHIEF ENGINEER, CCT Solder Deposit Operator: Bonnie Alvares Indications: Chest Pain Impression: There is a very mild intensity stress perfusion defect involving the distal anteroseptal wall which may represent ischemia. Low level exercise ECG was negative for ischemia. Gated EF = >70%. Findings communicated to ordering provider. History: Hypertension History of Smoking Stress Test Summary: Stress Test Type: Low level pharmacologic Regadenoson 0.4mg/5ml given IV Baseline Information: Initial Heart Rate: 56 Blood Pressure: 148/86 Stress Information: Stress Time: 4 min 00 sec Test Terminated Due to (primary): As per protocol Maximum Blood Pressure: 180/84 Maximum Heart Rate: 106 Percent Maximum Heart Rate Achieved: 70 Double Product: [id number] METS Reached: 2.1 Symptoms: Nausea, Dizziness Nuclear Summary: SPECT myocardial perfusion imaging using Tc99m Sestamibi given intravenously was performed at rest and following cardiac stress testing. The resting images were obtained following initial dose of 9.3 mCi. Following stress an additional dose of 34.6 mCi was given at peak exercise or 30 seconds post regadenoson infusion. Medication Given: Time Medication Dose Units Route Findings: Stress Note * Resting ECG demonstrated sinus rhythm. * Low level exercise/ pharmacologic stress ECG is negative for ischemia at level of heart rate achieved. * Patient had no chest pain during stress. * No arrhythmias were noted during stress. Hemodynamic responses * Normal hemodynamic responses to low level exercise plus pharmacologic stress. Study Quality * Study quality is good. Gated EF > 70% * Gated EF > 70%. Left Ventricle * The left ventricle is not dilated. NORMALS * Normal wall motion. * There is a small size, very mild intensity stress perfusion defect involving the distal anteroseptal wall. * Other segments demonstrate normal rest and stress perfusion. TID * No evidence of transient ischemic dilatation. Lung Uptake * There is no evidence of increase lung uptake. Updated by Rula Davila on 01/25/2017 12:57:08 PM electronically signed on 01/25/2017 1:02:22 PM with status of Final
[2017-01-25] MEDS: *HR* HYDROmorphone (PF) 1 MG/ML SYRINGE IVP PRN (13:25)
--- NOTE | 2017-01-25 13:32 | Internal Med Progress Note ---
Date of Encounter: 01/25/17 Time of Encounter: 13:30 - Assessment and plan (1) Hypertensive emergency Current Visit: Yes Status: Acute Assessment and plan: Continue lisinopril, Lopressor and add amlodipine Use IV hydralazine as needed Nicardipine was discontinued (2) Chest pain Current Visit: Yes Status: Acute Assessment and plan: Stress test was read as abnormal with a very mild intensity stress perfusion defect involving the distal anteroseptal wall which may represent ischemia, ejection fraction of 70% Echocardiogram shows an ejection fraction of 60-65% without any other abnormalities Cardiology recommendations appreciated Qualifiers: Chest pain type: other chest pain Qualified Code(s): R07.89 - Other chest pain; R07.8 - Other chest pain (3) GI bleeding Current Visit: Yes Status: Acute Assessment and plan: Acute blood loss/possible lower GI bleed Hemoglobin dropped from 15.8 down to 13.1, no active bleeding Continue aspirin for now due to abnormal stress test GI recommendations appreciated GI consulted due to rectal bleed Qualifiers: GI bleed type/associated pathology: unspecified gastrointestinal hemorrhage type Qualified Code(s): K92.2 - Gastrointestinal hemorrhage, unspecified (4) HLD (hyperlipidemia) Current Visit: Yes Status: Chronic Qualifiers: Hyperlipidemia type: pure hypercholesterolemia Qualified Code(s): E78.00 - Pure hypercholesterolemia, unspecified; E78.0 - Pure hypercholesterolemia (5) CKD (chronic kidney disease) stage 3, GFR 30-59 ml/min Current Visit: Yes Status: Chronic Assessment and plan: Continue mild hydration (6) Tobacco abuse counseling Current Visit: Yes Status: Acute Assessment and plan: Smoking cessation counseling, nicotine patch (7) Bradycardia Current Visit: Yes Status: Acute Assessment and plan: Resume Lopressor with holding parameters if heart rate is less than 55 - Subjective Interval history: Denies any chest pain, shortness of breath, blood pressures are still very elevated, denies any fevers or chills, no abdominal pain, dysuria or diarrhea - Constitutional Vitals: Temp Pulse Resp BP Pulse Ox 97.8 F 59 16 191/96 98 01/25/17 12:02 01/25/17 12:02 01/25/17 12:02 01/25/17 12:02 01/25/17 12:02 General appearance: Present: cooperative, mild distress, A&O X 3, pleasant, answers questions appropriately - Head Head exam: Present: atraumatic, normocephalic - Eye Eye exam: Present: PERRL, conjuntiva pink, sclera anicteric Pupils: Present: PERRL - Neck Neck exam general surgery: Present: supple, trachea midline. Absent: lymphadenopathy - Respiratory Respiratory exam: Present: decreased breath sounds, CTAB. Absent: accessory muscle use, rales, rhonchi, wheezes - Cardiovascular Cardiovascular exam: Present: RRR, +S1, +S2. Absent: diastolic murmur, gallop, rubs, systolic murmur - GI/Abdominal GI/Abdominal exam: Present: normal bowel sounds, soft, no peritoneal signs. Absent: distended, tenderness - Extremities Exam Extremities exam: Present: warm, radial pulses palpable and symmetrical. Absent : calf tenderness, cyanotic, pedal edema - Neurological Exam Neurological exam: Present: CN II-XII intact, oriented X3, no focal deficits. Absent: pronater drift, facial droop, speech deficit - Skin Skin exam: Present: dry, intact Internal Medicine: Result - Labs CBC & Chem 7: 01/25/17 00:41 01/25/17 00:41 Labs: Short CBC 01/25/17 Range/Units 00:41 WBC 7.8 (4.3-11.1) K/mcL Hgb 13.1 D (11.5-15.4) g/dL Hct 40.8 (35.3-44.9) % Plt Count 160 (140-400) K/mcL Neutrophils # 3.7 (1.6-8.9) K/mcL BMP 01/25/17 00:41 Sodium 141 Potassium 4.1 Chloride 111 H Carbon Dioxide 23 BUN 18 Creatinine 1.46 H Glucose 124 H Calcium 9.1 Cardiac Enzymes 01/24/17 01/25/17 Range/Units 17:21 00:41 Troponin I 0.01 0.01 (0-0.03) ng/mL Urine 01/25/17 Range/Units 08:19 Urine Color Yellow (Yellow) Urine Clarity Clear (Clear) Urine pH 5.5 (5.0-8.0) pH Units Ur Specific [place] 1.021 (1.010-1.025) Urine Protein Negative (Neg-Trace) mg/dL Urine Glucose (UA) Normal (Normal) mg/dL - ABG Interpretation ABG results: PT/INR, D-dimer PT 13.1 Seconds (9.4-12.1) H 01/25/17 00:41 Consult Discharge Plan - Plan Referrals: Barbara Galeano CNP [Primary Care Provider] -
--- NOTE | 2017-01-25 15:44 | Event Note ---
Date of Encounter: 01/25/17 Time of Encounter: 15:42 - Cardiology Event Note Nuclear stress with very mild stress perfusion defect involving distal anteroseptal wall which may represent ischemia. Discussed and reviewed with patient regarding medical management versus LHC. At this time, patient prefers medical management. Cardiology will sign off and will follow in outpatient setting. Follow up set.
--- NOTE | 2017-01-25 18:25 | Event Note ---
Date of Encounter: 01/25/17 Time of Encounter: 14:00 Patient with a history of rectal bleeding. Had recent colonoscopy had Josefa and was told that has hemorrhoid. On and off continued rectal bleeding sometime profuse. Rec: Sigmoidoscopy and if found to have large hemorrhoids and possible banding in the morning. will need to tapwater enema in the morning
[2017-01-25] MEDS: Ketorolac 30 MG/ML VIAL IVP PRN (19:21)
[2017-01-25 21:05] LABS: Hematocrit 37.2 % (35.3-44.9); Hemoglobin 12.6 g/dL (11.5-15.4)
[2017-01-26] MEDS: *HR* HYDROcodone/Acet 5/325 mg TABLET PO PRN (03:01)
[2017-01-26] MEDS: *HR* HYDROmorphone (PF) 1 MG/ML SYRINGE IVP PRN (03:02)
[2017-01-26] MEDS: Ipratropium/Albuterol Neb 3 ML IH SCH ×5 (04:29→20:07)
[2017-01-26 04:38] LABS: Hemoglobin 13.4 g/dL (11.5-15.4); Mean Corpuscular HGB Conc 32.7 g/dL (31.6-35.5); Mean Corpuscular Hemoglobin 30.9 pg (28.0-33.3); Mean Corpuscular Volume 94.5 fL (83.0-100.0); Mean Platelet Volume 11.1 fL (9.4-12.4); Platelet Count 163 K/mcL (140-400); Red Blood Count 4.34 M/mcL (3.82-4.97); Red Cell Distribution Width 13.1 % (11.5-14.5)
[2017-01-26 04:51] LABS: Calcium 9.9 mg/dL (8.6-10.8); Potassium 4.4 mEq/L (3.5-4.5)
[2017-01-26] MEDS: 0.9 % Sodium Chloride 1,000 ML IVC SCH (06:11)
[2017-01-26] MEDS: Multivit/Ca/Min/Fe/FA 1 TAB TABLET PO SCH (08:21)
[2017-01-26] MEDS: amLODIPine 5 MG TABLET PO SCH (08:22)
[2017-01-26] MEDS: Aspirin Enteric Coated 81 MG Tablet PO SCH (08:23)
[2017-01-26] MEDS: Ketorolac 30 MG/ML VIAL IVP PRN ×2 (08:23→13:20)
[2017-01-26] MEDS: Lisinopril 20 MG TABLET PO SCH ×2 (08:23→20:30)
--- NOTE | 2017-01-26 10:17 | Internal Med Progress Note ---
Date of Encounter: 01/26/17 Time of Encounter: 10:14 - Assessment and plan (1) Hypertensive emergency Current Visit: Yes Status: Acute Assessment and plan: Continue lisinopril, Lopressor added amlodipine on 01/25/17 add HCTZ Use IV hydralazine as needed Nicardipine was discontinued (2) Chest pain Current Visit: Yes Status: Acute Assessment and plan: Stress test was read as abnormal with a very mild intensity stress perfusion defect involving the distal anteroseptal wall which may represent ischemia, ejection fraction of 70% Echocardiogram showed an ejection fraction of 60-65% without any other abnormalities Cardiology consulted Nuclear stress with very mild stress perfusion defect involving distal anteroseptal wall which may represent ischemia. Cardiology discussed options with patient regarding medical management versus LHC. At this time, patient prefers medical management. Cardiology signed off Qualifiers: Chest pain type: other chest pain Qualified Code(s): R07.89 - Other chest pain; R07.8 - Other chest pain (3) GI bleeding Current Visit: Yes Status: Acute Assessment and plan: Acute blood loss/possible lower GI bleed/rectal bleed Hemoglobin dropped from 15.8 down to 13.4, no active bleeding Continue aspirin for now due to abnormal stress test GI consulted due to rectal bleed Had recent colonoscopy had Josefa and was told that has hemorrhoid. On and off continued rectal bleeding sometime profuse. Sigmoidoscopy and if found to have large hemorrhoids and possible banding Qualifiers: GI bleed type/associated pathology: unspecified gastrointestinal hemorrhage type Qualified Code(s): K92.2 - Gastrointestinal hemorrhage, unspecified (4) HLD (hyperlipidemia) Current Visit: Yes Status: Chronic Qualifiers: Hyperlipidemia type: pure hypercholesterolemia Qualified Code(s): E78.00 - Pure hypercholesterolemia, unspecified; E78.0 - Pure hypercholesterolemia (5) CKD (chronic kidney disease) stage 3, GFR 30-59 ml/min Current Visit: Yes Status: Chronic Assessment and plan: Continue mild hydration (6) Tobacco abuse counseling Current Visit: Yes Status: Acute Assessment and plan: Smoking cessation counseling, nicotine patch (7) Bradycardia Current Visit: Yes Status: Acute Assessment and plan: Resume Lopressor with holding parameters if heart rate is less than 55 (8) Severe headache Current Visit: Yes Status: Acute Assessment and plan: order ct of the head due to severe HTN - Subjective Interval history: Complaining of severe headache and nausea. Denies any chest pain, shortness of breath, blood pressures are still very elevated, denies any fevers or chills, no abdominal pain, dysuria or diarrhea - Constitutional Vitals: Temp Pulse Resp BP Pulse Ox 98 F 80 16 176/93 97 01/26/17 07:26 01/26/17 07:26 01/26/17 07:58 01/26/17 07:26 01/26/17 07:58 General appearance: Present: cooperative, mild distress, A&O X 3, pleasant, answers questions appropriately - Head Head exam: Present: atraumatic, normocephalic - Eye Eye exam: Present: PERRL, conjuntiva pink, sclera anicteric Pupils: Present: PERRL - Neck Neck exam general surgery: Present: supple, trachea midline. Absent: lymphadenopathy - Respiratory Respiratory exam: Present: CTAB. Absent: accessory muscle use, rales, rhonchi, wheezes - Cardiovascular Cardiovascular exam: Present: RRR, +S1, +S2. Absent: diastolic murmur, gallop, rubs, systolic murmur - GI/Abdominal GI/Abdominal exam: Present: normal bowel sounds, soft, no peritoneal signs. Absent: distended, tenderness - Extremities Exam Extremities exam: Present: warm, radial pulses palpable and symmetrical. Absent : calf tenderness, cyanotic, pedal edema - Neurological Exam Neurological exam: Present: CN II-XII intact, oriented X3, no focal deficits. Absent: pronater drift, facial droop, speech deficit - Skin Skin exam: Present: dry, intact Internal Medicine: Result - Labs CBC & Chem 7: 01/26/17 04:16 01/26/17 04:16 Labs: Short CBC 01/25/17 01/26/17 Range/Units 20:45 04:16 WBC 10.1 (4.3-11.1) K/mcL Hgb 12.6 13.4 (11.5-15.4) g/dL Hct 37.2 41.0 (35.3-44.9) % Plt Count 163 (140-400) K/mcL BMP 01/26/17 04:16 Sodium 139 Potassium 4.4 Chloride 108 Carbon Dioxide 23 BUN 19 Creatinine 1.34 H Glucose 99 Calcium 9.9 - ABG Interpretation ABG results: PT/INR, D-dimer PT 13.1 Seconds (9.4-12.1) H 01/25/17 00:41 Consult Discharge Plan - Plan Referrals: Archana Fernandez CNP [Advanced Practice Nurse] - (OFFICE WILL CALL PATIENT AT HOME WITH AN APPOINTMENT) Barbara Galeano CNP [Primary Care Provider] - 02/07/17 3:45 pm
[2017-01-26] MEDS ORDERED: Simethicone 40 MG/0.6 ML MLS IR ONE (17:27)
[2017-01-26] MEDS ORDERED: *HR* Midazolam HCl 5 MG/5 ML VIAL IVP PRN (17:27)
[2017-01-26] MEDS ORDERED: *HR* FentaNYL (PF) 100 MCG/2 ML VIAL IVP PRN (17:27)
[2017-01-26] MEDS ORDERED: 0.9 % Sodium Chloride 500 ML IVC SCH (17:30)
[2017-01-27] MEDS: Ipratropium/Albuterol Neb 3 ML IH SCH ×4 (00:25→11:20)
[2017-01-27] MEDS: Acetaminophen 325 MG TABLET PO PRN (03:40)
[2017-01-27 07:31] LABS: Calcium 9.4 mg/dL (8.6-10.8); Potassium 4.3 mEq/L (3.5-4.5)
[2017-01-27] MEDS: amLODIPine 5 MG TABLET PO SCH (08:04)
[2017-01-27] MEDS: Aspirin Enteric Coated 81 MG Tablet PO SCH (08:04)
[2017-01-27] MEDS: Multivit/Ca/Min/Fe/FA 1 TAB TABLET PO SCH (08:04)
[2017-01-27] MEDS: Lisinopril 20 MG TABLET PO SCH (08:04)
[2017-01-27 08:06] LABS: Basophils % 0.2 %; Eosinophils # 0.1 K/mcL (0.0-0.6); Eosinophils % 1.3 %; Hematocrit 37.3 % (35.3-44.9); Hemoglobin 12.4 g/dL (11.5-15.4); Immature Granulocytes % 0.5 % (0-4); Lymphocytes # 2.5 K/mcL (0.6-4.6); Mean Corpuscular HGB Conc 33.2 g/dL (31.6-35.5); Mean Corpuscular Hemoglobin 31.2 pg (28.0-33.3); Mean Corpuscular Volume 93.7 fL (83.0-100.0); Mean Platelet Volume 12.2 fL (9.4-12.4); Monocytes # 0.7 K/mcL (0.0-1.3); Monocytes % 6.8 %; Neutrophils # 6.3 K/mcL (1.6-8.9); Nucleated Red Blood Cells 0.2 /100 WBC (0); Platelet Count 150 K/mcL (140-400); Red Blood Count 3.98 M/mcL (3.82-4.97); Red Cell Distribution Width 13.2 % (11.5-14.5); Segmented Neutrophils % 65.2 %
[2017-01-27 11:33] VITALS: BP 139/77
--- NOTE | 2017-01-27 14:14 | Discharge Summary ---
Date of Encounter: 01/27/17 Time of Encounter: 14:11 - Discharge Diagnosis (1) Hypertensive emergency Priority: Primary Status: Acute (2) Chest pain Priority: Secondary Status: Acute Qualifiers: Chest pain type: other chest pain Qualified Code(s): R07.89 - Other chest pain; R07.8 - Other chest pain (3) GI bleeding Priority: Secondary Status: Acute Comments: Secondary to anal fissure Qualifiers: GI bleed type/associated pathology: unspecified gastrointestinal hemorrhage type Qualified Code(s): K92.2 - Gastrointestinal hemorrhage, unspecified (4) HLD (hyperlipidemia) Priority: Secondary Status: Chronic Qualifiers: Hyperlipidemia type: pure hypercholesterolemia Qualified Code(s): E78.00 - Pure hypercholesterolemia, unspecified; E78.0 - Pure hypercholesterolemia (5) CKD (chronic kidney disease) stage 3, GFR 30-59 ml/min Priority: Secondary Status: Chronic (6) Tobacco abuse counseling Priority: Secondary Status: Acute (7) Bradycardia Priority: Secondary Status: Acute (8) Severe headache Priority: Secondary Status: Acute - Discharge Medications Prescriptions: Atorvastatin [Lipitor] 10 mg PO HS #30 tab Metoprolol [Lopressor] 25 mg PO BID #60 tab Home Medications: Albuterol Sulfate [Proair Hfa] 2 puff IH Q4H PRN 01/24/17 [History] Fluticasone/Salmeterol [Advair 100-50 Diskus] 1 puff IH BID 01/24/17 [History] Lisinopril [Zestril] 40 mg PO DAILY 01/24/17 [History] Mv-Mn/FA/Vit K/Lycop/Lut/Coq10 [Daily Multivitamin Capsule] 1 tab PO DAILY 01/24 [History] Vitamin E 1,000 unit PO DAILY 01/24/17 [History] Budesonide/Formoterol 160/4.5 [Symbicort 160/4.5] 01/25/17 [History] Aspirin Enteric Coated [Aspirin EC] 81 mg PO DAILY 01/27/17 [Rx] Atorvastatin [Lipitor] 10 mg PO HS #30 tab 01/27/17 [Rx] Metoprolol [Lopressor] 25 mg PO BID #60 tab 01/27/17 [Rx] Allergies/Adverse Reactions: 3 Allergy/AdvReac Type Severity Reaction Status Date / Time codeine Allergy Hives Verified 01/24/17 13:59 Sulfa (Sulfonamide Allergy Hives Verified 01/24/17 13:59 Antibiotics) Procedures/tests Complete & Pending: Procedures Performed prior 72 hours Category Date Time Status CT head/brain wo con [CT] Stat Cat Scan 01/26/17 10:12 Completed NM mariana perf SPECT multi [NM] Routine Exams 01/25/17 07:24 Taken EV echocardiogram Stat Y 01/24/17 14:21 Completed SP pharm nuclear stress Routine Y 01/25/17 07:23 Completed Date of admission: 01/24/17 14:10 Primary care physician: Barbara Galeano CNP Consults: 01/24/17 14:17 Consult to Cardiology [CONS] Routine Comment: Consulting Provider: Cardiology Radha Reason for Consult: Patient is having chest pain with ST elevations on EKG. First troponin 0.01. No hx of cardiac issues. Echo cardiogram ordered stat. Call Completed: Yes Consult to Gastroenterology [CONS] Routine Consulting Provider: Gastroenterology Radha Reason for Consult: Patient reports bright red blood from rectum in sustantial amounts every two to three days. Last episode was three days ago. H/H currently high. Limited hx of GI procedures. Thinks last colonoscopy was 1 year ago. Call Completed: Yes 01/24/17 14:35 Consult to Nutrition [CONS] Routine Comment: Consulting Provider: NUTRITION Reason for Dietary Consult: Diet Education Other:: Patient has HTN and drinks approx. 48 cups of caffeinated coffee daily - Patient Status Disposition: Home, Self-Care Condition: Good Overall status at discharge: patient is back to baseline - Discharge Instructions Follow Up With: Archana Fenrandez CNP [Advanced Practice Nurse] - (OFFICE WILL CALL PATIENT AT HOME WITH AN APPOINTMENT) Brant Wilks CNP [Advanced Practice Nurse] - (SENT WEB REQUEST ON 01-26-17 @ 1457) Barbara Galeano CNP [Primary Care Provider] - 02/07/17 3:45 pm Forms: ED Satisfaction Letter, Work/School Release Additional Instructions: Follow-up with primary care physician within the next 7 days. Be compliant with blood pressure medications, decrease dose of metoprolol down to 25 g twice a day. Quit smoking. Continue amlodipine, lisinopril. - Diet and Activity Activity: increase activity as tolerated Diet: low fat, low cholesterol Hospital course: Ms. Dhillon is a 66 year old female with a relevant past medical history of HTN, hyperlipidemia, CKD3, tobacco abuse and COPD not oxygen dependent. Patient presented to [facility] after being seen in pulmonary clinic and noted to be hypertensive. On admission BP 220s systolic. Patient states at home she has had chest pain when her BP is elevated. Patient also reports increased shortness of breath and increased fatigue over the past 4 days. Hemoglobin dropped from 15.8 down to 13.4, no active bleeding, GI performed a rectal sigmoidoscopy that showed an anal seizure without any evidence of active bleeding. Stress test was read as abnormal with a very mild intensity stress perfusion defect involving the distal anteroseptal wall which may represent ischemia, ejection fraction of 70% Echocardiogram showed an ejection fraction of 60-65% without any other abnormalities Cardiology was consulted Nuclear stress with very mild stress perfusion defect involving distal anteroseptal wall which may represent ischemia. Cardiology discussed options with patient regarding medical management versus LHC. At this time, patient preferred medical management. Cardiology signed off Continued lisinopril, decreased Lopressor down to 25 mg twice a day due to bradycardia added amlodipine on 01/25/[address] a CT scan of the head did not show any abnormality. She is stable to be discharged Time spent discussing smoking cessation with patient: 3 to 10 minutes - Time Spent with Patient Total time spent providing and/or coordinating discharge services: Greater than 30 minutes (40 min) - Constitutional Vitals: Temp Pulse Resp BP Pulse Ox 98.3 F 59 18 139/77 95 01/27/17 11:28 01/27/17 11:30 01/27/17 11:28 01/27/17 11:28 01/27/17 11:28 General appearance: Present: cooperative, mild distress, A&O X 3, pleasant, answers questions appropriately - Head Head exam: Present: atraumatic, normocephalic - Eye Eye exam: Present: PERRL, conjuntiva pink, sclera anicteric Pupils: Present: PERRL - Neck Neck exam general surgery: Present: supple, trachea midline. Absent: lymphadenopathy - Respiratory Respiratory exam: Present: CTAB. Absent: accessory muscle use, rales, rhonchi, wheezes - Cardiovascular Cardiovascular exam: Present: RRR, +S1, +S2. Absent: diastolic murmur, gallop, rubs, systolic murmur - GI/Abdominal GI/Abdominal exam: Present: normal bowel sounds, soft, no peritoneal signs. Absent: distended, tenderness - Extremities Exam Extremities exam: Present: warm, radial pulses palpable and symmetrical. Absent : calf tenderness, cyanotic, pedal edema - Neurological Exam Neurological exam: Present: CN II-XII intact, oriented X3, no focal deficits. Absent: pronater drift, facial droop, speech deficit - Skin Skin exam: Present: dry, intact
== END 2017-01-27 15:58 | disposition home or self-care (01) | DRG 305 ==
LOC: 2NNU 11:14 → EMEROO 11:14 → 2NNU 14:18
PROVIDERS: ADMIT Internal Medicine; ATTEND Internal Medicine

== ENCOUNTER 2019-02-28 11:23 | Inpatient (IN) ==
[2019-02-28] MEDS ORDERED: 0.9 % Sodium Chloride 1,000 ML IVC ONE (11:34)
[2019-02-28] MEDS ORDERED: Ondansetron 4 MG/2 ML VIAL IVP ONE (11:34)
[2019-02-28] MEDS ORDERED: *HR* FentaNYL (PF) 100 MCG/2 ML VIAL IVP ONE (11:34)
[2019-02-28] MEDS ORDERED: Isovue-370 500 ML BOTTLE IVP ONE (11:40)
[2019-02-28] MEDS ORDERED: Esmolol 2.5 GM/250 ML MLS IVC SCH (11:45)
[2019-02-28 12:10] LABS: Alanine Aminotransferase 9 Units/L (7-52); Albumin 4.6 g/dL (3.5-5.7); Albumin/Globulin Ratio 1.4 (1.1-2.2); Alkaline Phosphatase 28 Units/L (34-104); Aspartate Amino Transferase 11 Units/L (13-39); BUN/Creatinine Ratio 12 (6-26); Bilirubin,Total 1.3 mg/dL (0.3-1.0); Blood Urea Nitrogen 16 mg/dL (8-23); Calcium 10.9 mg/dL (8.6-10.3); Carbon Dioxide 28 mEq/L (23-29); Chloride 104 mEq/L (98-107); Globulin 3.2 g/dL (2.4-3.5); Glucose 120 mg/dL (70-105); Osmolality,Calculated 290 (280-300); Potassium 3.9 mEq/L (3.5-5.1); Sodium 139 mEq/L (136-145); Total Protein 7.8 g/dL (6.4-8.9); Troponin I < 0.03 ng/mL (< 0.04); eGFR For African Americans 49 (> 60); eGFR For Non-African Americans 40 (> 60)
[2019-02-28 12:13] LABS: Basophils # 0.1 K/mcL (0.0-0.2); Basophils % 0.4 %; Eosinophils # 0.1 K/mcL (0.0-0.6); Eosinophils % 0.7 %; Hematocrit 49.1 % (35.3-44.9); Hemoglobin 16.3 g/dL (11.5-15.4); Immature Granulocytes % 0.4 % (0-4); Lymphocytes # 2.7 K/mcL (0.6-4.6); Lymphocytes % 20.5 %; Mean Corpuscular HGB Conc 33.2 g/dL (31.6-35.5); Mean Corpuscular Hemoglobin 32.1 pg (28.0-33.3); Mean Corpuscular Volume 96.7 fL (83.0-100.0); Mean Platelet Volume 11.9 fL (9.4-12.4); Monocytes % 7.5 %; Neutrophils # 9.3 K/mcL (1.6-8.9); Platelet Count 150 K/mcL (140-400); Red Blood Count 5.08 M/mcL (3.82-4.97); Red Cell Distribution Width 13.3 % (11.5-14.5); Segmented Neutrophils % 70.5 %; White Blood Count 13.2 K/mcL (4.3-11.1)
[2019-02-28 12:25] LABS: INR 1.1; Prothrombin Time 12.9 Seconds (9.4-12.1)
[2019-02-28 12:27] LABS: Activated Partial Thrombo Time 39.1 Seconds (26.0-36.0)
[2019-02-28] MEDS ORDERED: Ondansetron 4 MG/2 ML VIAL IVP PRN (14:08)
[2019-02-28] MEDS ORDERED: Naloxone 0.4 MG/ML INJ IVP PRN (14:08)
[2019-02-28] MEDS ORDERED: Lisinopril 20 MG TABLET PO SCH (14:10)
[2019-02-28] MEDS: amLODIPine 5 MG TABLET PO SCH (14:37)
[2019-02-28] MEDS: Ringers Solution, Lactated 1,000 ML IVC SCH (16:22)
[2019-02-28] MEDS ORDERED: *HR* Labetalol 20 MG/4 ML SYRINGE IVP ONE (18:45)
[2019-02-28] MEDS ORDERED: Nitroglycerin 25 MG/250 ML INFUS..BTL IVC SCH (19:00)
[2019-03-01] MEDS ORDERED: Acetaminophen 325 MG TABLET PO PRN (03:06)
[2019-03-01 04:36] LABS: Basophils % 0.3 %; Eosinophils # 0.1 K/mcL (0.0-0.6); Eosinophils % 0.9 %; Hematocrit 41.1 % (35.3-44.9); Immature Granulocytes % 0.3 % (0-4); Lymphocytes # 2.1 K/mcL (0.6-4.6); Lymphocytes % 17.4 %; Mean Corpuscular HGB Conc 32.6 g/dL (31.6-35.5); Mean Corpuscular Hemoglobin 32.1 pg (28.0-33.3); Mean Corpuscular Volume 98.3 fL (83.0-100.0); Mean Platelet Volume 11.8 fL (9.4-12.4); Monocytes # 1.1 K/mcL (0.0-1.3); Monocytes % 9.3 %; Neutrophils # 8.6 K/mcL (1.6-8.9); Platelet Count 120 K/mcL (140-400); Red Blood Count 4.18 M/mcL (3.82-4.97); Red Cell Distribution Width 13.3 % (11.5-14.5); Segmented Neutrophils % 71.8 %; White Blood Count 11.9 K/mcL (4.3-11.1)
[2019-03-01 04:52] LABS: Calcium 9.6 mg/dL (8.6-10.3); Potassium 3.7 mEq/L (3.5-5.1)
[2019-03-01 05:06] LABS: Hemoglobin 13.4 g/dL (11.5-15.4)
[2019-03-01] MEDS: Ringers Solution, Lactated 1,000 ML IVC SCH (05:41)
[2019-03-01 07:11] VITALS: BP 147/101
[2019-03-01] MEDS ORDERED: Aspirin Enteric Coated 81 MG Tablet PO SCH (09:00)
[2019-03-01] MEDS: amLODIPine 5 MG TABLET PO SCH (09:19)
== END 2019-03-01 14:00 | disposition home or self-care (01) | DRG 305 ==
LOC: EMEROOARM 11:23 → 2NENU 11:23 → SUATTDRO 14:34 → 2NENU 15:46
PROVIDERS: ADMIT Internal Medicine; ATTEND Internal Medicine